=== PATIENT | female | born 1975 | race Caucasian/White ===

== ENCOUNTER 2019-08-19 11:17 | Outpatient (CLI) | payer OTHER, SELFPAY ==
--- NOTE | ~2019-08-19 | MMUS_ITS ---
EXAMINATION: MM diagnostic yong BI w rafael, US breast LT limited HISTORY: Palpable lump of the lower outer left breast, mastodynia TECHNIQUE: Craniocaudal, mediolateral, and mediolateral oblique 3-D tomosynthesis images of the don ts were performed and synthetic 2-D images were generated. CAD analysis was submitted and interpreted . High resolution limited left breast ultrasound was performed. COMPARISON: 11/23/2017, 02/11/2016, 05/20/2011 BREAST PARENCHYMAL COMPOSITION: The breasts are extremely dense, which lowers the sensitivity of mamm ography. FINDINGS: MAMMOGRAPHIC FINDINGS: There is no evidence of suspicious mass, calcification, or architectural distortion to suggest malnathaniel alejandre. There has been no suspicious interval change. No mammographic correlate is identified for the reported palpable abnormality of the left breast. ULTRASOUND: There is no evidence of focal abnormal solid or cystic lesion in the vicinity of the patient's left b reast pain or palpable lump. IMPRESSION: 1. No specific mammographic or sonographic correlate is identified for the patient's left breast lump for left breast pain Further evaluation at this time should be based on clinical assessment. Continu ed follow-up physical examination is recommended. 2. Recommend routine screening mammography in one year. BI-RADS Category 1: Negative Reviewed, dictated and finalized at location A. IMPRESSION: 1. No specific mammographic or sonographic correlate is identified for the meg ent's left breast lump for left breast pain Further evaluation at this time marne uld be based on clinical assessment. Continued follow-up physical examination i s recommended. 2. Recommend routine screening mammography in one year. BI-RADS Category 1: Negative IMPRESSION: 1. No specific mammographic or sonographic correlate is identified for the meg ent's left breast lump for left breast pain Further evaluation at this time maren uld be based on clinical assessment. Continued follow-up physical examination i s recommended. 2. Recommend routine screening mammography in one year. BI-RADS Category 1: Negative
== END 2019-08-19 11:18 | disposition home or self-care (01) ==
LOC: ANHIMG 11:23
PROVIDERS: PCP Family Medicine
DX: N64.4 Mastodynia (principal)
CPT/HCPCS: 76642; 77062; 77066; G0279

== ENCOUNTER 2021-10-05 15:55 | Outpatient (CLI) | payer OTHER, SELFPAY ==
--- NOTE | ~2021-10-05 | MM_ITS ---
EXAMINATION: MM screening yong BI w rafael HISTORY: Screening TECHNIQUE: Craniocaudal and mediolateral oblique 3-D tomosynthesis images were obtained and synthetic 2-D images were generated. CAD analysis was submitted and interpreted. COMPARISON: Comparison to multiple prior studies sequentially, with oldest reviewed study dated 03/10. BREAST PARENCHYMAL COMPOSITION: The breasts are extremely dense, which lowers the sensitivity of mamm ography FINDINGS: There is no evidence of suspicious mass, calcification, or architectural distortion to sugg est malignancy in either breast. There has been no suspicious interval change. IMPRESSION: 1. No mammographic evidence of malignancy. 2. Recommend routine screening mammography in one year. BI-RADS Category 1: Negative Reviewed, dictated and finalized at location A.
== END 2021-10-05 15:56 | disposition home or self-care (01) ==
LOC: ANHIMG 15:58
DX: Z12.31 Encounter for screening mammogram for malignant neoplasm of breast (principal)
CPT/HCPCS: 77063; 77067

== ENCOUNTER 2023-01-24 15:40 | Outpatient (CLI) | payer OTHER, SELFPAY ==
--- NOTE | ~2023-01-24 | MM_ITS ---
EXAMINATION: MM screening yong BI w rafael HISTORY: Screening TECHNIQUE: Craniocaudal and mediolateral oblique 3-D tomosynthesis images were obtained and synthetic 2-D images were generated. CAD analysis was submitted and interpreted. COMPARISON: Comparison to multiple prior studies sequentially, with oldest reviewed study dated 06/2015. BREAST PARENCHYMAL COMPOSITION: The breasts are extremely dense, which lowers the sensitivity of mamm ography FINDINGS: There is no evidence of suspicious mass, calcification, or architectural distortion to sugg est malignancy in either breast. There has been no suspicious interval change. IMPRESSION: 1. No mammographic evidence of malignancy. 2. Recommend routine screening mammography in one year. BI-RADS Category 1: Negative Reviewed, dictated and finalized at location A.
== END 2023-01-24 15:41 | disposition home or self-care (01) ==
DX: Z12.31 Encounter for screening mammogram for malignant neoplasm of breast (principal)
CPT/HCPCS: 77063; 77067

== ENCOUNTER 2023-08-09 13:24 | Outpatient (CLI) | payer OTHER, SELFPAY ==
--- NOTE | ~2023-08-09 | XR_ITS ---
EXAMINATION: XR lumbar spine min 4V DATE: 08/09/2023 13:45 INDICATION: Left-sided lumbar radiculopathy. TECHNIQUE: 5 views of lumbar spine were obtained. COMPARISON: None. FINDINGS: There is 4 degrees levocurvature of lumbar spine. Vertebral body heights are normal. There are endplate osteophytes at multiple levels. Intervertebral disc heights are normal. 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 IMPRESSION: 1. Mild lumbar spondylosis. Reviewed, dictated and finalized at location A. IMPRESSION: 1. Mild lumbar spondylosis.
== END 2023-08-09 13:25 ==
PROVIDERS: PCP Chiropractor; Visit Provider Chiropractor
DX: M47.26 Other spondylosis with radiculopathy, lumbar region (principal)
CPT/HCPCS: 72110

== ENCOUNTER 2024-05-20 14:35 | Outpatient (CLI) | payer OTHER, SELFPAY ==
--- NOTE | ~2024-05-20 | MM_ITS ---
EXAMINATION: MM screening yong BI w rafael HISTORY: Screening TECHNIQUE: Craniocaudal and mediolateral oblique 3-D tomosynthesis images were obtained and synthetic 2-D images were generated. CAD analysis was submitted and interpreted. COMPARISON: Comparison to multiple prior studies sequentially, with oldest reviewed study dated 06/2015. BREAST PARENCHYMAL COMPOSITION: Dense: The breasts are extremely dense, which lowers the sensitivity of mammography. FINDINGS: There is no evidence of suspicious mass, calcification, or architectural distortion to sugg est malignancy in either breast. There has been no suspicious interval change. IMPRESSION: 1. No mammographic evidence of malignancy. 2. Recommend routine screening mammography in one year. BI-RADS Category 1: Negative Reviewed, dictated and finalized at location [facility]
--- OUTSIDE RECORDS SUMMARY | 2024-05-20 14:54 | XMS_ITS | Referral Summary ---
Author Organization [facility] Address [address] [place] [id number] Care Team Providers Care Pharmacy Clinical Specialist Name Role Phone Deepa Lott MD Primary Care Provider Encounters Date Type Department Care Team Description 05/17/2024 2:30 PM FULL TIME STAFF INTERPRETER Office Visit [facility] at [address] [phone] Jennifer Simmons NP Sore throat (Primary Dx); Acute non-recurrent maxillary sinusitis 05/03/2024 2:11 PM FULL TIME STAFF INTERPRETER - 05/03/2024 11:59 PM FULL TIME STAFF INTERPRETER Hospital Encounter [address] [phone] Discharge Disposition: Discharge to home or self care 05/03/2024 2:00 PM FULL TIME STAFF INTERPRETER Lab [facility] at [address] [place] [phone] 05/03/2024 1:30 PM FULL TIME STAFF INTERPRETER Office Visit [facility] at [address] [place] [phone] Ana Bear NP Routine medical exam (Primary Dx); Migraine without aura and without status migrainosus, not intractable; Rosacea; Anxiety; History of basal cell carcinoma; Need for hepatitis C screening test; Need for hepatitis B screening test 04/04/[address] [facility] [address] [place] [address] [place] [phone] Gee Hopkins IV, MD 04/01/2024 11:57 AM FULL TIME STAFF INTERPRETER - 04/01/2024 11:59 PM FULL TIME STAFF INTERPRETER Hospital Encounter [facility] [address] [place] [phone] Discharge Disposition: Discharge to home or self care 04/01/2024 11:30 AM FULL TIME STAFF INTERPRETER Office Visit [facility] [address] [facility] [address] [place] [phone] Gee Hopkins IV, MD Menopausal symptoms (Primary Dx); Fibroids, subserous; Well woman exam with routine gynecological exam from Last 3 Months Allergies Active Allergy Reactions Criticality Noted Date Comments Morphine Hives Medium 08/15/2019 Medications buPROPion XL (WELLBUTRIN XL) 300 mg 24 hr tabletIndications: Anxiety Take 1 tablet (300 mg total) by mouth every morning 90 tablet 3 05/08/19 24 Active estradiol-norethin drone acet (COMBIPATCH) 0.05-0.14 mg/[address] 1 patch on the skin 2 (two) times a week 8 patch 11 04/04/20 24 025 Active ZOLMitriptan (ZOMIG) 5 mg nasal solutionIndication s:Migraine Administer 1 spray into one nostril as needed for migraine 6 mL 3 05/03/19 25 026 Active amoxicillin-clavul anate (AUGMENTIN) 875-125 mg per tabletIndications: Acute non-recurrent maxillary sinusitis Take 1 tablet by mouth 2 (two) times a day for 10 days 20 tablet 05/17/19 25 025 Active Soolantra 1 % cream Apply topically nightly 10/09/19 21 025 Discontin ued(Thera py completed ) Zomig 5 mg nasal solutionIndication s:Migraine Administer 1 spray into one nostril as needed for migraine 6 mL 2 08/28/19 24 025 Discontin ued(Thera py completed ) rizatriptan IMPREGNATOR ELECTROLYTIC [employer]ACITORS (MAXALT-IMPREGNATOR ELECTROLYTIC CAPACITORS) 5 mg disintegrating tabletIndications: Migraine Take 1 tablet (5 mg total) by mouth once as needed for migraine May repeat in 2 hours if unresolved. Do not exceed 30 mg in 24 hours. 9 tablet 2 09/07/19 24 025 Discontin ued(Thera py completed ) Active Problems Problem Noted Date Diagnosed Date Rosacea 04/26/2023 Assessment & Plan (05/02/2024 2:45 PM FULL TIME STAFF INTERPRETER): Topical treatment as needed Assessment & Plan (04/26/2023 7:56 AM FULL TIME STAFF INTERPRETER): Follows with dermatology. Stable with Soolantra 1% cream as needed, using infrequently. - Continue current regimen Routine medical exam 04/25/2023 Assessment & Plan (05/03/2024 1:31 PM FULL TIME STAFF INTERPRETER): Dentist: up to date Exercise: frequent Diet: healthy Mammogram: due - coming up Colon: 10/29 + 10 The patient should continue to focus on diet and exercise as a way to maintain and improve health. Immunizations: up to date Will review labs performed today and contact the patient with the results. Assessment & Plan (04/25/2023 3:34 PM FULL TIME STAFF INTERPRETER): General - HbA1c: 5.5% 06/2022 - Lipid panel: LDL 118 06/2022 - ASCVD score: 0.6% low risk - DEXA scan: Discuss at 65 Cancer - Colonoscopy: UTD 10/2021, repeat 10/2031 - Mammogram: UTD 01/2023, repeat 01/2024 - Pap: UTD 02/2022, repeat per [facility] Immunizations - Influenza: UTD 01/2023, repeat annually - Td/Tdap: UTD 06/2022, repeat 06/2032 - PCV20: Discuss at 65 - Shingles: Discuss at 50 - COVID: Recommended Migraine without aura and wi thout status migrainosus, not intractable 09/28/2020 Assessment & Plan (05/02/2024 2:45 PM FULL TIME STAFF INTERPRETER): Infrequent - zomig as needed Assessment & Plan (04/26/2023 7:55 AM FULL TIME STAFF INTERPRETER): Infrequent migraines, stable w/ use of Zomig nasal spray. - Continue current regimen Assessment & Plan (09/28/2020 1:16 PM CDT): Well controlled with zomig spray Uses 5-6 times per year History of basal cell carcinoma Assessment & Plan (05/02/2024 2:45 PM FULL TIME STAFF INTERPRETER): Follows with derm Assessment & Plan (04/26/2023 7:55 AM FULL TIME STAFF INTERPRETER): Follows with Dr. Otero annually. Several BCCs removed in the past. - Continue current regimen - Reviewed importance of sun protection Anxiety Assessment & Plan (05/02/2024 2:45 PM FULL TIME STAFF INTERPRETER): On wellbutrin XL Assessment & Plan (04/26/2023 7:55 AM FULL TIME STAFF INTERPRETER): Stable on Wellbutrin XL 300 mg daily. - Continue current regimen Assessment & Plan (09/28/2020 1:40 PM CDT): Well controlled on wellbutrin, continue Resolved Problems Problem Noted Date Diagnosed Date Resolved Date Insect bite of neck 01/05/2021 04/25/19 24 Assessment & Plan (01/05/2021 10:14 AM CDT): Red raised 2 mm insect bite that is itchy. No bullseye rash. Avoid scratching. Reassurance given that this is not Lyme's disease. Swelling of lymph node 01/05/202104/25 Assessment & Plan (01/05/2021 10:15 AM CDT): Explained that this is a congested lymph node that should respond to warm compresses for 10 minutes 2-3 times a day. CBC pending. Preventative health care 09/28/2020 Overview (09/28/2020): Currently established with [facility] in the [facility] system: Dr. Kellie EASTON on paps 07/2018 - no prior abnl paps 3 pgx 2 deliveries- no medical problems during No family hx of CRC- has not had screening yet Mamm- 08/2019 Assessment & Plan (09/28/2020 1:33 PM CDT): Plan to complete preventative visit with labs prior upcoming fall Currently established with [facility] [employer] [facility] [facility] in the [facility] system: Dr. Kellie EASTON on paps 07/2018 - no prior abnl paps 3 pgx 2 deliveries- no medical problems during No family hx of CRC- has not had screening yet Mamm- 08/2019 Immunizations Name Administration Dates Next Due Influenza, Quadrivalent, Graciela l Culture-based MDCK, Preservative Free, Antibiotic Free, Intramuscular 03/14/2023,02/18/2022 Influenza, Quadrivalent, Spl it, Preservative Free, Intramuscular 01/29/2021,01/20/2020,05/21/2018 Influenza, Split 04/30/2013 Influenza, Trivalent, Preser vative Free, Intramuscular 02/13/2024,04/05/2017,04/24/2016 Influenza, Unspecified 02/06/2023 Pfizer SARS-CoV-2 Monovalent Vaccination (12+ Yrs) PURPLE 01/28/2021,06/13/2020,05/16/2020 Tdap 07/01/2022 Social History Tobacco Use Types Packs/Day Years Used Date Smoking Tobacco: Never Smokeless Tobacco: Never Tobacco Cessation:Counseling Given: Not Answered Alcohol Use Standard Drinks/Week Comments Yes 5 (1 standard drink = 0.6 oz pur e alcohol) AUDIT-C Answer Date Recorded Q1: How often do you have a drink containing alc ohol? 2-4 times a month 10/15/2021 Q2: How many drinks containi ng alcohol do you have on a typical day when you are drinking? 3 or 4 10/15/2021 Q3: How often do you have si x or more drinks on one occasion? Never 10/15/2021 PHQ-2 Answer Date Recorded PHQ-2 Total Score (If total score is 3 or more points, staff should administer the PHQ-9) 0 05/03/2024 Exercise Vital Sign Answer Date Recorde d On average, how many days pe r week do you engage in moderate to strenuous exercise (like a brisk walk)? 7 days 09/28/2020 On average, how many minutes do you engage in exercise at this level? 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 Not on file Not on pavan e Last Filed Vital Signs Vital Sign Reading Time Taken Comments Blood Pressure 118/76 05/17/2024 2:23 PM FULL TIME STAFF INTERPRETER Pulse 72 05/17/2024 2:23 PM FULL TIME STAFF INTERPRETER Temperature 36.7 C (98.1 F) 05/17/2024 2:23 PM FULL TIME STAFF INTERPRETER Respiratory Rate 20 05/17/2024 2:23 PM FULL TIME STAFF INTERPRETER Oxygen Saturation 99% 05/17/2024 2:23 PM FULL TIME STAFF INTERPRETER Inhaled Oxygen Concentration - - Weight 59.9 kg (132 lb) 05/17/2024 2:23 PM FULL TIME STAFF INTERPRETER Height 172.7 cm (5' 8 ) 05/17/2024 2:23 PM FULL TIME STAFF INTERPRETER Body Mass Index 20.07 05/17/2024 2:23 PM FULL TIME STAFF INTERPRETER Plan of Treatment Not on file Procedures Procedure Name Priority Date/Time Associated Diagnosis Comments POCT RAPID STREP Routine 05/17/2024 2:41 PM FULL TIME STAFF INTERPRETER Sore throat EGFR Routine 05/03/2024 1:47 PM FULL TIME STAFF INTERPRETER Routine medical exam DIFFERENTIAL AUTO Routine 05/03/2024 1:4 7 PM FULL TIME STAFF INTERPRETER Routine medical exam CBC WITH AUTO DIFFERENTIAL Routine 05/03/2024 1:47 PM FULL TIME STAFF INTERPRETER Routine medical exam COMPREHENSIVE METABOLIC PANEL Routine 05/03/2024 1:47 PM FULL TIME STAFF INTERPRETER Routine medical exam LIPID PANEL Routine 05/03/2024 1:47 PM FULL TIME STAFF INTERPRETER Routine medical exam THYROID FUNCTION CASCADE Routine 05/03/2024 1:47 PM FULL TIME STAFF INTERPRETER Routine medical exam Anxiety HEPATITIS C ANTIBODY Routine 05/03/2024 1:47 PM FULL TIME STAFF INTERPRETER Need for hepatitis C screening test HEPATITIS B SURFACE ANTIGEN Routine 05/03/2024 1:47 PM FULL TIME STAFF INTERPRETER Routine medical exam Need for hepatitis B screening test HEPATITIS B CORE ANTIBODY, TOTAL Routine 05/03/2024 1:47 PM FULL TIME STAFF INTERPRETER Routine medical exam Need for hepatitis B screening test HEPATITIS B SURFACE ANTIBODY (IMMUNE STATUS) Routine 05/03/2024 1:47 PM FULL TIME STAFF INTERPRETER Routine medical exam Need for hepatitis B screening test URINALYSIS AND REFLEX TO MICROSCOPIC AND CULTURE Routine 05/03/2024 1:47 PM FULL TIME STAFF INTERPRETER Routine medical exam FOLLICLE STIMULATING HORMONE Routine 04/01/2024 3:23 PM FULL TIME STAFF INTERPRETER Menopausal symptoms HM MAMMOGRAPHY Routine 01/24/2023 PAP AND HIGH RISK HPV, REFLEX TO GENOTYPING Routine 02/24/2022 4:43 PM FULL TIME STAFF INTERPRETER Well woman exam with routine gynecological exam Screening for HPV (human papillomavirus) Screening for malignant neoplasm of cervix COLONOSCOPY 10/15/2021 8:06 AM CDT from Last 3 Months or Most Recently Relevant to Health Maintenance Results * POCT rapid strep A (05/17/2024 2:41 PM FULL TIME STAFF INTERPRETER) Pathologist [facility] Rapid Strep A, POC Negative Negative Swab 05/17/2024 2:41 PM FULL TIME STAFF INTERPRETER Jennifer Simmons NP POINT OF CARE TEST ORDERAB LES Final Result * eGFR (05/03/2024 1:47 PM FULL TIME STAFF INTERPRETER) Pathologist [facility] eGFR >90 >=60 mL/min/1. 73 m2 Comment: Interpretive Data Reference Interval Normal >/= 90 mL/min/1.73m2 Mildly decreased* 60 - 89 mL/min/1.73m2 Mildly to moderately decreased 45 - 59 mL/min/1.73m2 Moderately to severely decreased 30 - 44 mL/min/1.73m2 Severely decreased 15 - 29 mL/min/1.73m2 Kidney Failure < 15 mL/min/1.73m2 *Relative to young adult level Estimated glomerular filtration rate is determined by the 2020 CKD-EPI equation recommended by the National Kidney Foundation (A Unifying Approach to GFR Estimation: Recommendations of the NKF-ASK Task Force on Reassessing the Inclusion of Race in Diagnosing Kidney Disease, JASN 202). The CKD-EPI equation should not be used for patients with unstable renal function and has not been validated in children and those over 70. Current interpretive data was last reviewed 2021. Blood 05/03/2024 1:47 PM FULL TIME STAFF INTERPRETER 05/03/2024 7:09 PM FULL TIME STAFF INTERPRETER us Ana Bear DIE MAKER APPRENTICE LAB BLOOD ORDERABLES Final Res ult [facility] [address] [place] [address] * Differential, auto (05/03/2024 1:47 PM FULL TIME STAFF INTERPRETER) Neutrophil abs 1.8 1.5 - 6.5 K/cumm Imm gran abs 0.0 0.0 - 0.1 K/cumm [facility] Lymphocyte abs 1.6 0.8 - 3.3 K/cumm [facility] Monocyte abs 0.3 0.2 - 0.8 K/cumm [facility] Eosinophil abs 0.0 0.0 - 0.5 K/cumm [facility] Basophil abs 0.0 0.0 - 0.1 K/cumm [facility] Neutrophil pct 47.3 % [facility] Comment: Interpretive Data Percent cell count reference ranges are not reported, since discordance with absolute values may lead to misinterpretation of CBC data. Current Interpretive Data was last revised on 2017. Imm gran pct 0.3 % [facility] Comment: Interpretive Data Percent cell count reference ranges are not reported, since discordance with absolute values may lead to misinterpretation of CBC data. Current Interpretive Data was last revised on 2017. Lymphocyte pct 42.6 % [facility] Comment: Interpretive Data Percent cell count reference ranges are not reported, since discordance with absolute values may lead to misinterpretation of CBC data. Current Interpretive Data was last revised on 2017. Monocyte pct 8.3 % [facility] Comment: Interpretive Data Percent cell count reference ranges are not reported, since discordance with absolute values may lead to misinterpretation of CBC data. Current Interpretive Data was last revised on 2017. Eosinophil pct 1.0 % [facility] Comment: Interpretive Data Percent cell count reference ranges are not reported, since discordance with absolute values may lead to misinterpretation of CBC data. Current Interpretive Data was last revised on 2017. Basophil pct 0.5 % [facility] Comment: Interpretive Data Percent cell count reference ranges are not reported, since discordance with absolute values may lead to misinterpretation of CBC data. Current Interpretive Data was last revised on 2017. Blood 05/03/2024 1:47 PM FULL TIME STAFF INTERPRETER 05/03/2024 6:42 PM FULL TIME STAFF INTERPRETER Ana Bear DIE MAKER APPRENTICE LAB BLOOD ORDERABLES Final Res ult Performing Organization Address [facility]/ZIP Co de Phone Number [facility] [address] [place] [address] * Thyroid Function Dickens (05/03/2024 1:47 PM FULL TIME STAFF INTERPRETER) TSH 1.95 0.30 - 4.20 mcIUnit/mL Blood 05/03/2024 1:47 PM FULL TIME STAFF INTERPRETER 05/03/2024 7:09 PM FULL TIME STAFF INTERPRETER Ana Bear DIE MAKER APPRENTICE LAB BLOOD ORDERABLES Final Res ult Performing Organization Address City/[facility]/ZIP Co de Phone Number [facility] [address] [place] [address] * (ABNORMAL) Urinalysis reflex to microscopic and culture Urine, clean voided (05/03/2024 1:47 PM FULL TIME STAFF INTERPRETER) Color, ur Yellow Yellow Clarity, ur Clear Clear [facility] Specific gravity, ur 1.012 1.003 - 1.030 [facility] pH, urine 6.0 [facility] Comment: Interpretive Data U rine pH is affected by diet, medications, systemic acid-base disturbances, and renal tubular function. pH may affect urinary stone formation. For example, urine pH below 6.0 may help reduce the tendency for calcium phosphate stones and pH greater than 6.0 may reduce the tendency for uric acid stone formation. Source: [facility] Current Interpretive Data was last revised on 2017 Protein, ur ql Negative Negative [facility] Glucose, ur ql Negative Negative [facility] Ketones, ur 1+(A) Negative [facility] Bilirubin, ur Negative Negative [facility] Blood, ur Negative Negative [facility] Urobilinogen, ur <2.0 <2.0 mg/dL [facility] Nitrite, ur Negative Negative [facility] Leukocyte esterase, ur Negative Negative [facility] UA reflex comment Reflex conditions for microscopic UA and culture not met. [facility] Urine, clean voided 05/03/2024 1:47 PM FULL TIME STAFF INTERPRETER 05/03/2024 1:48 PM FULL TIME STAFF INTERPRETER us Ana Bear NP LAB MICROBIOLOGY - GENERAL ORD ERABLES Final Result [facility] [address] Department [place] [address] * (ABNORMAL) CBC with auto differential (05/03/2024 1:47 PM FULL TIME STAFF INTERPRETER) Pathologist [facility] WBC 3.9 3.8 - 9.9 K/cumm Hgb 13.7 11.9 - 15.5 g/dL [facility] Hct 42.4 35.6 - 45.5 % [facility] Plt 246 150 - 400 K/cumm [facility] MPV 9.2 9.1 - 12.3 fL [facility] RBC 4.34 3.90 - 5.20 M/cumm [facility] MCV 97.7(H) 81.3 - 96.4 fL [facility] MCH 31.6 27.1 - 33.3 pg [facility] MCHC 32.3 32.3 - 35.7 g/dL [facility] RDW CV 12.2 11.1 - 14.9 % [facility] RDW SD 44.1 35.7 - 48.1 fL [facility] NRBC abs 0.00 0.00 - 0.01 K/cumm [facility] Blood 05/03/2024 1:47 PM FULL TIME STAFF INTERPRETER 05/03/2024 6:42 PM FULL TIME STAFF INTERPRETER Ana Bear NP LAB BLOOD ORDERABLES Final Res ult Performing Organization Address [facility] Co de Phone Number [facility] [address] [place] [address] * Hepatitis C antibody Blood (05/03/2024 1:47 PM FULL TIME STAFF INTERPRETER) Hep C Ab Nonreactive Nonreactive Comment: Interpretive Data Nonreactive: Antibodies to HCV not detected. Does NOT exclude the possibility of recent exposure to HCV. Equivocal: Equivocal for HCV antibodies. Supplemental molecular testing will be automatically performed to determine infection status in accordance with current CDC screening recommendations. Reactive: Positive for HCV antibodies. This may represent current or past HCV infection. Supplemental molecular testing will be automatically performed to determine current infection status in accordance with current CDC screening recommendations. Interpretive data was last revised on 2019. Blood 05/03/2024 1:47 PM FULL TIME STAFF INTERPRETER 05/03/2024 7:09 PM FULL TIME STAFF INTERPRETER Ana Bear NP LAB MICROBIOLOGY - GENERAL ORD ERABLES Final Result Performing Organization Address City/[facility]/ZIP Co de Phone Number [facility] [address] [place] [address] * Hepatitis B core antibody, total Blood (05/03/2024 1:47 PM FULL TIME STAFF INTERPRETER) Hep B core IgG/IgM Nonreactive Nonreactive Comment:Testing performed by : [facility], [address] [place]., [address] Blood 05/03/2024 1:47 PM FULL TIME STAFF INTERPRETER 05/03/2024 9:47 PM FULL TIME STAFF INTERPRETER Ana Bear NP LAB MICROBIOLOGY - GENERAL ORD ERABLES Final Result Performing Organization Address City/[facility] Co de Phone Number [facility] [address] [place] [address] * Hepatitis B surface antibody (immune status) Blood (05/03/2024 1:47 PM FULL TIME STAFF INTERPRETER) Pathologist [facility] HBsAb (immune status) Nonreactive Comment: This result is consistent with a lack of immunity to Hepatitis B Virus when used in the setting of routine screening. Current interpretative data was last revised on 21 Testing performed by: [facility], [address] [place]., [address] Blood 05/03/2024 1:47 PM FULL TIME STAFF INTERPRETER 05/03/2024 9:47 PM FULL TIME STAFF INTERPRETER Ana Bear NP LAB MICROBIOLOGY - GENERAL ORD ERABLES Final Result Performing Organization Address [facility] Co de Phone Number [facility] [address] [place] [address] * Hepatitis B Surface Antigen Blood (05/03/2024 1:47 PM FULL TIME STAFF INTERPRETER) Pathologist [facility] HepBsAg Nonreactive Nonreactive Blood 05/03/2024 1:47 PM FULL TIME STAFF INTERPRETER 05/03/2024 7:09 PM FULL TIME STAFF INTERPRETER Ana Bear NP LAB MICROBIOLOGY - GENERAL ORD ERABLES Final Result Performing Organization Address City/[facility]/ZIP Co de Phone Number [facility] [address] [place] [address] * (ABNORMAL) Lipid panel (05/03/2024 1:47 PM FULL TIME STAFF INTERPRETER) Cholesterol 204(H) 30 - 199 mg/dL Comment: Interpretive Data Ages < or = 19 years Acceptable: <170 mg/dL Borderline high: 170-199 mg/dL High: >or= 200 mg/dL Ages > or = 20 years Desirable: <200 mg/dL Borderline high: 200-239 mg/dL High: >or= 240 mg/dL Literature References: 1. Expert Panel on Integrated Guidelines for Cardiovascular Health and Risk Reduction in Children and Adolescents. Pediatrics 2011;128:S213 2. NCEP Expert Panel. Circulation 2004;110:227 Current Interpretive Data was last revised on 2017. Triglycerides 59 <=149 mg/dL [facility] Comment: Interpretive Data Ages < or = 9 years Acceptable: <75 mg/dL Borderline high: 75-99 mg/dL High: >or= 100 mg/dL Ages 10 to 20 years Acceptable: <90 mg/dL Borderline high: 90-129 mg/dL High: >or= 130 mg/dL Ages > or = 20 years Desirable: <150 mg/dL Borderline high: 150-199 mg/dL High: 200-499 mg/dL Very high: >or= 499 mg/dL Literature References: 1. Expert Panel on Integrated Guidelines for Cardiovascular Health and Risk Reduction in Children and Adolescents. Pediatrics 2011;128:S213 2. NCEP Expert Panel. Circulation 2004;110:227 Current Interpretive Data was last revised on 2017. HDL 70 >=40 mg/dL [facility] Comment: Interpretive Data Ages < or = 19 years Acceptable: >45 mg/dL Borderline low: 40-45 mg/dL Low: <40 mg/dL Ages > or = 20 years Desirable: >or= 60 mg/dL Low: <40 mg/dL Literature References: 1. Expert Panel on Integrated Guidelines for Cardiovascular Health and Risk Reduction in Children and Adolescents. Pediatrics 2011;128:S213 2. NCEP Expert Panel. Circulation 2004;110:227 Current Interpretive Data was last revised on 2017. LDL, calculated 123 <=129 mg/dL [facility] Comment: Interpretive Data Ages < or = 19 years Acceptable: <110 mg/dL Borderline high: 110-129 mg/dL High: >or= 130 mg/dL Ages > or = 20 years Optimal: <100 mg/dL Near optimal: 100-129 mg/dL Borderline high: 130-159 mg/dL High: >160 mg/dL Calculated using the Kevin LDL-C estimating equation. This equation was implemented on 2023. Prior to this date LDL-C was estimated using the Friedewald equation. Literature References: 1. Expert Panel on Integrated Guidelines for Cardiovascular Health and Risk Reduction in Children and Adolescents. Pediatrics 2011;128:S213 2. NCEP Expert Panel. Circulation 2004;110:227 3. Kevin Palomino et al. MIKE Cardiol. 2020 August 08;5(5):540-548. doi: 10.1001/jamacardio.2020.0013 Current Interpretive Data was last revised on 2023. Non-HDL Cholesterol 134 mg/dL [facility] Comment: Interpretive Data Ages < or = 19 years Acceptable: <120 mg/dL Borderline high: 120-144 mg/dL High: >145 mg/dL Ages > or = 20 years When triglycerides are >200 mg/dL, Non-HDL cholesterol is a secondary target of therapy with treatment goals that are 30 mg/dL greater than the LDL cholesterol target. Literature References: 1. Expert Panel on Integrated Guidelines for Cardiovascular Health and Risk Reduction in Children and Adolescents. Pediatrics 2011;128:S213 2. NCEP Expert Panel. Circulation 2004;110:227 Current Interpretive Data was last revised on 2017. Chol/HDL ratio 3 [facility] Blood 05/03/2024 1:47 PM FULL TIME STAFF INTERPRETER 05/03/2024 7:09 PM FULL TIME STAFF INTERPRETER us Ana Bear DIE MAKER APPRENTICE LAB BLOOD ORDERABLES Final Res ult [facility] [address] Department [place] [address] * Comprehensive metabolic panel (05/03/2024 1:47 PM FULL TIME STAFF INTERPRETER) Sodium 142 135 - 145 mmol/L Potassium, pl 4.0 3.3 - 4.9 mmol/L [facility] Chloride 104 97 - 110 mmol/L [facility] CO2 26 22 - 32 mmol/L [facility] Anion gap 12 2 - 15 mmol/L [facility] BUN 13 6 - 25 mg/dL [facility] Creatinine 0.65 0.60 - 1.10 mg/dL [facility] Glucose 78 70 - 199 mg/dL [facility] Comment: Interpretive Data Fasting glucose >/= 126 mg/dl is diagnostic for diabetes. Fasting is defined as no caloric intake for at least 8 hours. Fasting glucose between 100 mg/dl to 125 mg/dl is diagnostic of prediabetes. In a patient with classic symptoms of hyperglycemia or hyperglycemic crisis, a random glucose >/= 200 mg/dl is diagnostic for diabetes. In the absence of unequivocal hyperglycemia, results should be confirmed by repeat testing. The classification and Diagnosis of Diabetes Diabetes Care 202; 46: S19-S40. Current interpretive data was last revised 2022. Calcium 9.4 8.5 - 10.3 mg/dL [facility] Bilirubin, total 0.4 0.1 - 1.2 mg/dL [facility] Protein, pl 7.1 6.5 - 8.5 g/dL [facility] Albumin 4.6 3.5 - 5.0 g/dL [facility] Alk phos 66 40 - 130 Units/L [facility] ALT 17 7 - 45 Units/L [facility] AST 23 10 - 45 Units/L [facility] Blood 05/03/2024 1:47 PM FULL TIME STAFF INTERPRETER 05/03/2024 7:09 PM FULL TIME STAFF INTERPRETER Ana Bear DIE MAKER APPRENTICE LAB BLOOD ORDERABLES Final Res ult [facility] [address] Department [place] [address] * Follicle stimulating hormone (04/01/2024 3:23 PM FULL TIME STAFF INTERPRETER) FSH 115.00 mIUnits/mL Comment: Interpretive Data Males: 1.5 - 12.4 mIUnits/mL Females: Follicular Phase: 3.5 - 12.5 mIUnits/mL Ovulatory Phase: 4.7 - 21.5 mIUnits/mL Luteal Phase: 1.7 - 7.7 mIUnits/mL Post-menopausal: 25.8 - 134 mIUnits/mL Current Interpretive Data was last revised on 2016. Blood 04/01/2024 3:23 PM FULL TIME STAFF INTERPRETER 04/01/2024 3:23 PM FULL TIME STAFF INTERPRETER Gee Hopkins IV, MD LAB BLOOD ORDERABLES F inal Result [facility] [address] [facility] Department [place] [address] * HM MAMMOGRAPHY (01/24/2023) Mammography Normal Historical Provider HEALTH MAINTENANCE Final Result * Pap and High Risk HPV, reflex to Genotyping (02/24/2022 4:43 PM FULL TIME STAFF INTERPRETER) Thin prep (Pap test) 02/24/2022 4:43 PM FULL TIME STAFF INTERPRETER 02/28/2022 2:31 PM FULL TIME STAFF INTERPRETER Narrative [facility] - 03/04/2022 9:01 AM FULL TIME STAFF INTERPRETER EPIC results best viewed via link to PDF [id number] [place], [place] [address] Tele: Mariela Hair MD - Billet Grinder CYTOLOGY REPORT Note to Patients: This report may contain a detailed description of human tissue sent by a health care provider to the laboratory for pathologic evaluation. The content of this report is essential for diagnosis and may provide important critical findings. This information may be unfamiliar to patients to review without a medical professional present. It is advised that the patient review this report in the presence of a health care provider who can answer questions and explain the details. Patient Name: TAIWO SHORE Address: [address] [place] [address] Gender: F : 1975 (Age: 46) Service: Location: [facility] #: [id number] Patient Type: MBC SPECIMEN Taken: 02/24/2022 Reported: 03/04/2022 Physician(s): Juan José Hopkins M.D. FINAL DIAGNOSIS: Specimen Type: - ThinPrep Pap and HPV w/ reflex Genotyping Statement of Specimen Adequacy: Source: Cervical/Endocervical - Satisfactory for interpretation - Endocervical /Transformation Zone component present - Case screened using computer assisted imaging technology General Categorization: - Negative for intraepithelial lesion or malignancy xbb/03/04/2022 09:01LISSY Lewis (ASCP) Report Reviewed and Electronically Signed By LISSY Lewis (ASCP)Clerical Data Follow A; G0145 DIAGNOSIS COMMENT: Ancillary Testing: HPV High Risk Group (16, 18, 31, 33, 35, 39, 45, 51, 52, 56, 58, 59, 66 and 68) - Not Detected Reference Range: Not Detected This test was performed using the MARY ANN 4800 CLINICAL DIAGNOSIS AND HISTORY Last Menstrual Period: UNK Menstrual History: Regular Cycles REPORT IMAGES AND/OR SCANNED DOCUMENTS ONLY VIEWABLE IN PDF FORMAT The Pap test is a screening test used to aid in the detection of cervical cancer and its precursors. It should not be the sole means by which malignant and premalignant lesions are diagnosed. Both false negative and false positive results may occur. It also has poor sensitivity for the detection of endometrial lesions and should not be used to evaluate suspected endometrial abnormalities. For these reasons it is most important to obtain Pap tests at regular intervals, as recommended by your physician or nurse practitioner. us Gee Hopkins IV, MD LAB CYTOLOGY ORDERABLE S Final Result [facility] Laboratory Receiving [address] [place] [address] * COLONOSCOPY (10/15/2021 8:06 AM CDT) Anatomical Region Laterality Modality Other Narrative Procedure Note Anand Walker MD - 10/15/2021 8:06 AM CDT ENDOSCOPY LAB Patient Name: Taiwo Shore Procedure Date: 10/15/2021 8:06 AM Admit Type: Outpatient Room: [facility] Date of : 1975 Instrument Name: [id number] Gender: Female Note Status: Finalized Procedure: Colonoscopy Indications: Screening for colorectal malignant neoplasm, Thisis the patient's first colonoscopy Providers: Anand Walker M.D. Referring MD: Marquez Koehler M.D. Medicines: Propofol per Anesthesia Complications: No immediate complications. Estimated Blood Loss: Estimated blood loss: none. Procedure: Pre-Anesthesia Assessment: - Pre-procedure physical examination revealed no contraindications to sedation. - The risks and benefits of the procedure and the sedation options and risks were discussed with the patient. All questions were answered and informed consent was obtained. The benefits, risks and alternatives of theprocedure and sedation were discussed and informed consentwas obtained. All questions were answered. Please referto the signed informed consent document in the medical record. The scope was passed under direct vision.The Colonoscope was introduced through the anus and advanced to the the cecum, identified byappendiceal orifice and ileocecal valve. The colonoscopy was performed without difficulty. The patient tolerated the procedure well. The quality of the bowel preparation was good. The quality of the bowel preparation was evaluated using the BBPS (BostonBowel Preparation Scale) with scores of: Right Colon = 3 (entire mucosa seen well with no residual staining, small fragments of stool or opaque liquid),Transverse Colon = 3 (entire mucosa seen well with no residual staining, small fragments of stool or opaqueliquid) and Left Colon = 3 (entire mucosa seen well with no residual staining, small fragments of stool oropaque liquid). The total BBPS score equals 9. The bowel preparation used was polyethylene glycol (PEG) via split dose instruction. Bowel prep was administered using a split dose. Bowel prep was administeredusing a split dose. Findings: Internal hemorrhoids were found during retroflexion. The hemorrhoids were small. The exam was otherwise without abnormality. Impression: - Small internal hemorrhoids. - The examination was otherwise normal. - No specimens collected. Recommendation: - Repeat colonoscopy in 10 years for screening purposes. - If you become aware of a family history of colon cancer/polyps in a first-degree relative, repeat screening colonoscopy at 5 year intervals. - If GI problems arise in the interim, call ouroffice. Electronically signed by Anand Walker MD Anand Walker M.D. 10/15/2021 8:51:44 AM Number of Addenda: 0 Note Initiated On: 10/15/2021 8:06 AM Scope In: Scope Out: Anand Walker MD ENDOSCOPY PROCEDURES Final Result from Last 3 Months or Most Recently Relevant to Health Maintenance Insurance [facility] [employer] [facility] H[facility]/PPO Address: [address] [place] [address] [place] [address] [facility] [employer] [facility] [facility] H[employer]/PPO Address: [address] [place] [address] [place] [address] [facility] [employer] [facility] [facility] H[employer]/PPO Address: [address] [place] [address] Advance Directives For more information, please contact: [phone] * Full Code (Latest Code Status on File) Date Activated Date Inactivated Comments 10/15/2021 7:37 AM 10/15/2021 1:27 PM Care Teams Pharmacy Clinical Specialist Relationship Specialty Start Date End Date Deepa Lott MD [address] [address] PCP - General Internal Medicine 04/25/23
--- OUTSIDE RECORDS SUMMARY | 2024-05-20 14:54 | XMS_ITS | Patient Health Summary ---
Author Organization [facility] Address [address] [place] [address] Care Team Providers Care Rim Buster Name Role Phone Marquez Koehler MD Primary Care Provider [phone] Note from [facility],non-owned Affiliates and Associated Physician Practices is amultiple site organization consisting of ambulatory clinics and hospital sitesin [place], [place], [place] and [place]. This disclosure is being madepursuant to the Care Everywhere program and may not contain all information available regarding this patient. Last updated 17.[facility] Allergies * Morphine(Urticaria) -Medium Criticality Medications * Be aware that medications may not be up to date on this document. Alwaysverify current medications with the patient. 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
--- OUTSIDE RECORDS SUMMARY | 2024-05-20 14:54 | XMS_ITS | Clinical Summary ---
Author Organization [facility] Address [address] [place] [address] Phone Care Team Providers Care Statement Services Representative Name Role Phone Unavailable Primary Care Provider Unavailabl e Allergies Active Allergy Reactions Criticality Noted Date Comments Morphine Hives High 06/28/2021 Medications buPROPion HCL (WELLBUTRIN XL) 300 mg Extended Release 24 hour tablet Take 300 mg by mouth daily in the morning. Active Social History Tobacco Use Types Packs/Day Years Used Date Smoking Tobacco: Never Alcohol Use Standard Drinks/Week Comments Yes 0 (1 standard drink = 0.6 oz pur e alcohol) 10 Comments Unknown Sex and Gender Information Value Date Recorded Sex Assigned at Not on file Legal Sex Female 10:24 AM TIER AND DETONATOR Gender Identity Not on file Sexual Orientation Not on file Last Filed Vital Signs Vital Sign Reading Time Taken Comments Blood Pressure 93/57 08/02/2021 3:23 PM CDT Pulse 67 08/02/2021 3:23 PM CDT Temperature 36.3 C (97.4 F) 08/02/2021 3:23 PM CDT Respiratory Rate 17 08/02/2021 1:45 PM CDT Oxygen Saturation 100% 08/02/2021 3:23 PM CDT Inhaled Oxygen Concentration - - Weight 60.2 kg (132 lb 12.8 oz) 022 11:04 AM CDT Height 175.3 cm (5' 9 ) 08/02/2021 11:0 4 AM CDT Body Mass Index 19.61 08/02/2021 11:04 AM CDT Plan of Treatment Health Maintenance Due Date Last Done Comments DTAP/TDAP/TD VACCINES (1 - Tdap) 1994 HEPATITIS B VACCINES (1 of 3 - 19+ 3-dose series) 1994 CERVICAL CANCER SCREENING 2005 BREAST CANCER SCREENING 2015 COLORECTAL SCREENING 2020 Colorectal Cancer Screening 2020 FIT-DNA Q 3 years 2020 FIT/FOBT Q 1 year 2020 Flex Sig/CT Colonography Q 5 years 2020 INFLUENZA VACCINE (#1) 2023 , 01/20/2020, 05/21/2018, Additional history exists Insurance [place] [id number] [facility] [id number] Advance Directives For more information, please contact: [phone] * Full Code (Latest Code Status on File) Date Activated Date Inactivated Comments 08/02/2021 1:51 PM 08/02/2021 5:45 PM * Full Code Date Activated Date Inactivated Comments 08/02/2021 12:17 PM 08/02/2021 1:51 PM
--- OUTSIDE RECORDS SUMMARY | 2024-05-20 14:54 | XMS_ITS | Clinical Summary ---
Author Organization [facility] Address [address] [place] [address] Care Team Providers Care Time Checker Name Role Phone Marquez Koehler MD Primary Care Provider [phone]- [phone] Source Comments [facility],non-owned Affiliates and Associated Physician Practices is amultiple site organization consisting of ambulatory clinics and hospital sitesin [place], [place], [place] and [place]. This disclosure is being madepursuant to the Care Everywhere program and may not contain all information available regarding this patient. Last updated 17.[facility] Allergies Active Allergy Reactions Criticality Noted Date Comments Morphine Urticaria Medium 08/15/2019 Medications * Be aware that medications may not be up to date on this document. Alwaysverify current medications with the patient. 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 Family History Relation Name Status Comments Father Alive Maternal Grandfather Maternal Grandmother Mother Alive Paternal Grandfather Paternal Grandmother Social History Tobacco Use Types Packs/Day Years Used Date Smoking Tobacco: Never Smokeless Tobacco: Never Alcohol Use Standard Drinks/Week Comments Yes 0 (1 standard drink = 0.6 oz pur e alcohol) Sex and Gender Information Value Date Recorded Sex Assigned at Not on file Gender Identity Not on file Sexual Orientation Not on file Plan of Treatment Health Maintenance Due Date Last Done Comments COLOGUARD (AGES 45-75) - COLON CA SCREENING [address] COLONOGRAPHY - COLON CA SCREENING 1975 FIT - COLON CA SCREENING 1975 FLEX SIG - COLON CA SCREENING 1975 LIPID TESTING 1975 MAMMOGRAM 1975 PAP SMEAR 1975 HIV SCREENING 1990 HEPATITIS C SCREENING 04/11/1993 DTAP/TDAP/TD VACCINES (1 - Tdap) 1994 HEPATITIS B VACCINE (1 of 3 - 19+ 3-dose series) 1994 COVID-19 VACCINE ( - 2023- season) 2023 01/28/2021, 06/13/2020, 05/16/2020 INFLUENZA VACCINE (#1) 2023 , 01/20/2020, 05/21/2018, Additional history exists DEPRESSION SCREENING 04/10/2024 ZOSTER VACCINE (1 of 2) 2025 COLONOSCOPY - COLON CA SCREENING 10/16/2031 10/15/2021 Colorectal Cancer Screening 10/16/2031 HIB VACCINE Aged Out No longer eligi ble based on patient's age to complete this topic HPV VACCINE Aged Out No longer eligi ble based on patient's age to complete this topic MENINGOCOCCAL (Group B) VACCINE Aged Out No longer eligible based on patient's age to complete this topic MENINGOCOCCAL VACCINE Aged Out No rosalba chris eligible based on patient's age to complete this topic PNEUMOCOCCAL VACCINE Aged Out No long er eligible based on patient's age to complete this topic Care Teams Time Checker Relationship Specialty Start Date End Date Marquez Koehler MD [address] [facility] [address] [place] [address] PCP - General 06/01/21
--- OUTSIDE RECORDS SUMMARY | 2024-05-20 14:54 | XMS_ITS | Clinical Summary ---
Author Organization [facility] Address [address] [place] [phone] Care Team Providers Care Educational Program Assistant Name Role Phone Deepa Lott MD Primary Care Provider Allergies Active Allergy Reactions Criticality Noted Date [...] 025 Discontin ued(Thera py completed ) rizatriptan QUALITY CONTROL TESTER (MAXALT-QUALITY CONTROL TESTER) 5 mg disintegrating tabletIndications: Migraine Take 1 tablet (5 mg total) by mouth once as needed for migraine May repeat in 2 hours if unresolved. Do not exceed 30 mg in 24 hours. 9 tablet 2 09/07/19 24 025 Discontin ued(Thera py completed ) Active Problems Problem Noted Date Diagnosed Date Rosacea 04/26/2023 Assessment & Plan (05/02/2024 2:45 PM PEST LOCATOR): Topical treatment as needed Assessment & Plan (04/26/2023 7:56 AM PEST LOCATOR): Follows with dermatology. Stable with Soolantra 1% cream as needed, using infrequently. - Continue current regimen Routine medical exam 04/25/2023 Assessment & Plan (05/03/2024 1:31 PM PEST LOCATOR): Dentist: up to date Exercise: frequent Diet: healthy Mammogram: due - coming up Colon: 10/29 + 10 The patient should continue to focus on diet and exercise as a way to maintain and improve health. Immunizations: up to date Will review labs performed today and contact the patient with the results. Assessment & Plan (04/25/2023 3:34 PM PEST LOCATOR): General - HbA1c: 5.5% 06/2022 - Lipid panel: LDL 118 06/2022 - ASCVD score: 0.6% low risk - DEXA scan: Discuss at 65 Cancer - Colonoscopy: UTD 10/2021, repeat 10/2031 - Mammogram: UTD 01/2023, repeat 01/2024 - Pap: UTD 02/2022, repeat per Buckle Attaching Machine Operator Immunizations - Influenza: UTD 01/2023, repeat annually - Td/Tdap: UTD 06/2022, repeat 06/2032 - PCV20: Discuss at 65 - Shingles: Discuss at 50 - COVID: Recommended Migraine without aura and wi thout status migrainosus, not intractable 09/28/2020 Assessment & Plan (05/02/2024 2:45 PM PEST LOCATOR): Infrequent - zomig as needed Assessment & Plan (04/26/2023 7:55 AM PEST LOCATOR): Infrequent migraines, stable w/ use of Zomig nasal spray. - Continue current regimen Assessment & Plan (09/28/2020 1:16 PM CDT): Well controlled with zomig spray Uses 5-6 times per year History of basal cell carcinoma Assessment & Plan (05/02/2024 2:45 PM PEST LOCATOR): Follows with derm Assessment & Plan (04/26/2023 7:55 AM PEST LOCATOR): Follows with Dr. Otero annually. Several BCCs removed in the past. - Continue current regimen - Reviewed importance of sun protection Anxiety Assessment & Plan (05/02/2024 2:45 PM PEST LOCATOR): On wellbutrin XL Assessment & Plan (04/26/2023 7:55 AM PEST LOCATOR): Stable on Wellbutrin XL 300 mg daily. [...] care 09/28/2020 Overview (09/28/2020): Currently established with [facility] in the [facility] system: Dr. Kellie EASTON on paps 07/2018 - no prior abnl paps 3 pgx 2 deliveries- no medical problems during No family hx of CRC- has not had screening yet Mamm08/2019 Assessment & Plan (09/28/2020 1:33 PM CDT): Plan to complete preventative visit with labs prior upcoming fall Currently established with [facility] in the [facility] system: Dr. Kellie EASTON on paps 07/2018 - no prior abnl paps 3 pgx 2 deliveries- no medical problems during No family hx of CRC- has not had screening yet 08/2019 Encounters Date Type Department Care Team Description 05/17/2024 2:30 PM PEST LOCATOR Office Visit [facility] Care at [address] [phone] Jennifer Simmons NP Sore throat (Primary Dx); Acute non-recurrent maxillary sinusitis 05/03/2024 2:11 PM PEST LOCATOR - 05/03/2024 11:59 PM PEST LOCATOR Hospital Encounter [id number] [place] [address] Discharge Disposition: Discharge to home or self care 05/03/2024 2:00 PM PEST LOCATOR Lab [facility] Primary Care at [address] [place] [phone] 05/03/2024 1:30 PM PEST LOCATOR Office Visit [facility] Primary Care at [address] [place] [phone] Ana Bear NP Routine medical exam (Primary Dx); Migraine without aura and without status migrainosus, not intractable; Rosacea; Anxiety; History of basal cell carcinoma; Need for hepatitis C screening test; Need for hepatitis B screening test 04/04/2024 Orders Only [facility] [address] [place] [address] [place] [phone] Gee Hopkins IV, MD 04/01/2024 11:57 AM PEST LOCATOR - 04/01/2024 11:59 PM PEST LOCATOR Hospital Encounter [facility] [address] [place] [address] Discharge Disposition: Discharge to home or self care 04/01/2024 11:30 AM PEST LOCATOR Office Visit [facility] [address] [facility] [address] [address] Gee Hopkins IV, MD Menopausal symptoms (Primary Dx); Fibroids, subserous; Well woman exam with routine gynecological exam from Last 3 Months Immunizations Name Administration Dates Next Due Influenza, Quadrivalent, Graciela l Culture-based MDCK, Preservative Free, Antibiotic Free, Intramuscular 03/14/2023,02/18/2022 Influenza, Quadrivalent, Spl it, Preservative Free, Intramuscular 01/29/2021,01/20/2020,05/21/2018 Influenza, Split 04/30/2013 Influenza, Trivalent, Preser vative Free, Intramuscular 02/13/2024,04/05/2017,04/24/2016 Influenza, Unspecified 02/06/2023 Pfizer SARS-CoV-2 Monovalent Vaccination (12+ Yrs) PURPLE 01/28/2021,06/13/2020,05/16/2020 Tdap 07/01/2022 Surgical History Surgery Date Site/Laterality Comments BASAL CELL CARCINOMA EXCISION 04/10/2010 - 04/09/2011 BASAL CELL CARCINOMA EXCISION 04/10/2011 - 04/09/2012 REDUCTION MAMMOPLASTY 04/10/2012 - 04/09/2013 ENDOMETRIAL ABLATION W/ NOVASURE 04/10/2016 - 04/09/2017 BREAST SURGERY 04/10/2010 - 04/09/2011 BASAL CELL CARCINOMA EXCISION 07/09/2021 - 08/07/2021 Medical History Medical History Date Comments Anxiety Basal cell carcinoma Migraines Rosacea Family History Medical History Relation Name Comments Hypertension Father Dante Anthony Cancer Maternal Grandmother Evelia Flores Pancreatic cancer Maternal Grandmother Evelia Flores No Known Problems Mother Heart disease Paternal Grandfather Breast cancer Neg Hx Colon cancer Neg Hx Diabetes Neg Hx Relation Name Status Comments Father Dante Neu[place] Alive Maternal Grandfather Maternal Grandmother Evelia Flores Mother Alive Paternal Grandfather Paternal Grandmother Social [...] 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 Not on file Not on pavan e Obstetrics History Para Term AB IAB SAB Ectopic Multiple Livin g Live Births 3 2 2 1 1 2 2 Date Outcome GA Total Labor Labor/2nd/3rd Weight Sex Type Anes PTL Val A1 A5 Name Clin 2003 SAB 5w0 d 2004 Term 39w 5d 3.799 kg (8 lb 6 oz) M Vag-S pont Epidura l Livin g Sabino 2008 Term 39w 5d 3.912 kg (8 lb 10 oz) M Vag-S pont Epidura l Livin g Arun Last Filed Vital Signs Vital Sign Reading Time Taken Comments Blood Pressure 118/76 05/17/2024 2:23 PM PEST LOCATOR Pulse 72 05/17/2024 2:23 PM PEST LOCATOR Temperature 36.7 C (98.1 F) 05/17/2024 2:23 PM PEST LOCATOR Respiratory Rate 20 05/17/2024 2:23 PM PEST LOCATOR Oxygen Saturation 99% 05/17/2024 2:23 PM PEST LOCATOR Inhaled Oxygen Concentration - - Weight 59.9 kg (132 lb) 05/17/2024 2:23 PM PEST LOCATOR Height 172.7 cm (5' 8 ) 05/17/2024 2:23 PM PEST LOCATOR Body Mass Index 20.07 05/17/2024 2:23 PM PEST LOCATOR Plan of Treatment Health Maintenance Due Date Last Done Comments Breast Cancer Screening-Mammogram 01/25/2024 01/24/2023, 01/24/2023 Covid-19 Vaccine () 05/03/2025 01/28/2021, 06/13/2020, 05/16/2020 Postponed from 12/10/2023 (Patient declined, but will receive in the future) Depression Screening 05/03/2025 05/03/2024, 07/01/2022, 09/28/2020 Regular Well Visit/Exam 18-64 05/03/2025 05/03/2024, 04/01/2024, 03/10/2023, Additional history exists Cervical Cancer Screening 02/24/2027 02/24/2022 Colon Cancer Screening-Colonoscopy 10/16/2031 10/15/2021 DTaP/Tdap/Td Vaccine (2 - Td or Tdap) 07/01/2032 07/01/2022 Influenza Vaccine Completed 02/13/2024, , 02/06/2023, Additional history exists Hepatitis B Screening Completed 05/03/2024 Hepatitis C Screening Completed 05/03/2024 Pneumococcal vaccine <65 Aged Out No longer eligible based on patient's age to complete this topic Procedures Procedure Name Priority Date/Time Associated Diagnosis Comments POCT RAPID STREP Routine 05/17/2024 2:41 PM PEST LOCATOR Sore throat EGFR Routine 05/03/2024 1:47 PM PEST LOCATOR Routine medical exam DIFFERENTIAL AUTO Routine 05/03/2024 1:4 7 PM PEST LOCATOR Routine medical exam CBC WITH AUTO DIFFERENTIAL Routine 05/03/2024 1:47 PM PEST LOCATOR Routine medical exam COMPREHENSIVE METABOLIC PANEL Routine 05/03/2024 1:47 PM PEST LOCATOR Routine medical exam LIPID PANEL Routine 05/03/2024 1:47 PM PEST LOCATOR Routine medical exam THYROID FUNCTION CASCADE Routine 05/03/2024 1:47 PM PEST LOCATOR Routine medical exam Anxiety HEPATITIS C ANTIBODY Routine 05/03/2024 1:47 PM PEST LOCATOR Need for hepatitis C screening test HEPATITIS B SURFACE ANTIGEN Routine 05/03/2024 1:47 PM PEST LOCATOR Routine medical exam Need for hepatitis B screening test HEPATITIS B CORE ANTIBODY, TOTAL Routine 05/03/2024 1:47 PM PEST LOCATOR Routine medical exam Need for hepatitis B screening test HEPATITIS B SURFACE ANTIBODY (IMMUNE STATUS) Routine 05/03/2024 1:47 PM PEST LOCATOR Routine medical exam Need for hepatitis B screening test URINALYSIS AND REFLEX TO MICROSCOPIC AND CULTURE Routine 05/03/2024 1:47 PM PEST LOCATOR Routine medical exam FOLLICLE STIMULATING HORMONE Routine 04/01/2024 3:23 PM PEST LOCATOR Menopausal symptoms HM MAMMOGRAPHY Routine 01/24/2023 PAP AND HIGH RISK HPV, REFLEX TO GENOTYPING Routine 02/24/2022 4:43 PM PEST LOCATOR Well woman exam with routine gynecological exam Screening for HPV (human papillomavirus) Screening for malignant neoplasm of cervix COLONOSCOPY 10/15/2021 8:06 AM CDT from Last 3 Months or Most Recently Relevant to Health Maintenance Results * POCT rapid strep A (05/17/2024 2:41 PM PEST LOCATOR) Rapid Strep A, POC Negative Negative Swab 05/17/2024 2:41 PM PEST LOCATOR us Jennifer Simmons LOCK TENDER CHIEF OPERATOR POINT OF CARE TEST ORDERAB LES Final Result * eGFR (05/03/2024 1:47 PM PEST LOCATOR) eGFR >90 >=60 mL/min/1. 73 m2 Comment: [...] of Race in Diagnosing Kidney Disease, JASN 2020). The CKD-EPI equation should not be used for patients with unstable renal function and has not been validated in children and those over 70. Current interpretive data was last reviewed 2021. Blood 05/03/2024 1:47 PM PEST LOCATOR 05/03/2024 7:09 PM PEST LOCATOR us Ana Bear LOCK TENDER CHIEF OPERATOR LAB BLOOD ORDERABLES Final Res ult [facility] [address] Department [place] [address] * Differential, auto (05/03/2024 1:47 PM PEST LOCATOR) Pathologist [facility] Neutrophil abs 1.8 1.5 - 6.5 K/cumm Imm gran abs 0.0 0.0 - 0.1 K/cumm [facility] Lymphocyte abs 1.6 0.8 - 3.3 K/cumm [facility] Monocyte abs 0.3 0.2 - 0.8 K/cumm [facility] Eosinophil abs 0.0 0.0 - 0.5 K/cumm [facility] Basophil abs 0.0 0.0 - 0.1 K/cumm [facility] Neutrophil pct 47.3 % [facility] Comment: Interpretive Data Percent cell count reference ranges are not reported, since discordance with absolute values may lead to misinterpretation of CBC data. Current Interpretive Data was last revised on 2017. Imm gran pct 0.3 % [facility] Comment: Interpretive Data Percent cell count reference ranges are not reported, since discordance with absolute values may lead to misinterpretation of CBC data. Current Interpretive Data was last revised on 2017. Lymphocyte pct 42.6 % [facility] Comment: Interpretive Data Percent cell count reference ranges are not reported, since discordance with absolute values may lead to misinterpretation of CBC data. Current Interpretive Data was last revised on 2017. Monocyte pct 8.3 % [facility] Comment: Interpretive Data Percent cell count reference ranges are not reported, since discordance with absolute values may lead to misinterpretation of CBC data. Current Interpretive Data was last revised on 2017. Eosinophil pct 1.0 % [facility] Comment: Interpretive Data Percent cell count reference ranges are not reported, since discordance with absolute values may lead to misinterpretation of CBC data. Current Interpretive Data was last revised on 2017. Basophil pct 0.5 % [facility] Comment: Interpretive Data Percent cell count reference ranges are not reported, since discordance with absolute values may lead to misinterpretation of CBC data. Current Interpretive Data was last revised on 2017. Blood 05/03/2024 1:47 PM PEST LOCATOR 05/03/2024 6:42 PM PEST LOCATOR us nAa Bear LOCK TENDER CHIEF OPERATOR LAB BLOOD ORDERABLES Final Res ult [facility] [address] Department [place] [address] * Thyroid Function Todd (05/03/2024 1:47 PM PEST LOCATOR) TSH 1.95 0.30 - 4.20 mcIUnit/mL Blood 05/03/2024 1:47 PM PEST LOCATOR 05/03/2024 7:09 PM PEST LOCATOR Ana Bear NP LAB BLOOD ORDERABLES Final Res ult Performing Organization Address City/[facility]/ZIP Co de Phone Number [facility] [address] Department of Laboratories [place], [place] [id number] * (ABNORMAL) Urinalysis reflex to microscopic and culture Urine, clean voided (05/03/2024 1:47 PM PEST LOCATOR) Color, ur Yellow Yellow Clarity, ur Clear Clear [facility] Specific gravity, ur 1.012 1.003 - 1.030 [facility] pH, urine 6.0 [facility] Comment: Interpretive Data U rine pH is affected by diet, medications, systemic acid-base disturbances, and renal tubular function. pH may affect urinary stone formation. For example, urine pH below 6.0 may help reduce the tendency for calcium phosphate stones and pH greater than 6.0 may reduce the tendency for uric acid stone formation. Source: [facility] Current Interpretive Data was last revised on 2017 Protein, ur ql Negative Negative [facility] Glucose, ur ql Negative Negative [facility] Ketones, ur 1+(A) Negative [facility] Bilirubin, ur Negative Negative [facility] Blood, ur Negative Negative [facility] Urobilinogen, ur <2.0 <2.0 mg/dL [facility] Nitrite, ur Negative Negative [facility] Leukocyte esterase, ur Negative Negative [facility] UA reflex comment Reflex conditions for microscopic UA and culture not met. [facility] Urine, clean voided 05/03/2024 1:47 PM PEST LOCATOR 05/03/2024 1:48 PM PEST LOCATOR Ana Bear NP LAB MICROBIOLOGY - GENERAL ORD ERABLES Final Result Performing Organization Address [facility]/ZIP Co de Phone Number [facility] [address] Department of Laboratories [place], [place] [id number] * (ABNORMAL) CBC with auto differential (05/03/2024 1:47 PM PEST LOCATOR) [facility] WBC 3.9 3.8 - 9.9 K/cumm Hgb 13.7 11.9 - 15.5 g/dL [facility] Hct 42.4 35.6 - 45.5 % [facility] Plt 246 150 - 400 K/cumm [facility] MPV 9.2 9.1 - 12.3 fL [facility] RBC 4.34 3.90 - 5.20 M/cumm [facility] MCV 97.7(H) 81.3 - 96.4 fL [facility] MCH 31.6 27.1 - 33.3 pg [facility] MCHC 32.3 32.3 - 35.7 g/dL [facility] RDW CV 12.2 11.1 - 14.9 % [facility] RDW SD 44.1 35.7 - 48.1 fL [facility] NRBC abs 0.00 0.00 - 0.01 K/cumm [facility] Blood 05/03/2024 1:47 PM PEST LOCATOR 05/03/2024 6:42 PM PEST LOCATOR us Ana Bear LOCK TENDER CHIEF OPERATOR LAB BLOOD ORDERABLES Final Res ult [facility] [address] Department [place] [address] * Hepatitis C antibody Blood (05/03/2024 1:47 PM PEST LOCATOR) [facility] Hep C Ab Nonreactive Nonreactive Comment: Interpretive [...] revised on 2019. Blood 05/03/2024 1:47 PM PEST LOCATOR 05/03/2024 7:09 PM PEST LOCATOR us Ana Bear NP LAB MICROBIOLOGY - GENERAL ORD ERABLES Final Result [facility] [address] [facility] [place] [address] * Hepatitis B core antibody, total Blood (05/03/2024 1:47 PM PEST LOCATOR) Hep B core IgG/IgM Nonreactive Nonreactive Comment:Testing performed by : [facility], [address] [place]., [address] Blood 05/03/2024 1:47 PM PEST LOCATOR 05/03/2024 9:47 PM PEST LOCATOR Ana Bear NP LAB MICROBIOLOGY - GENERAL ORD ERABLES Final Result Performing Organization Address [facility] Co de Phone Number [facility] [address] [facility] [place] [address] * Hepatitis B surface antibody (immune status) Blood (05/03/2024 1:47 PM PEST LOCATOR) HBsAb (immune status) Nonreactive Comment: This result is consistent with a lack of immunity to Hepatitis B Virus when used in the setting of routine screening. Current interpretative data was last revised on 21 Testing performed by: [facility], [address] [place] [address]., [id number] Blood 05/03/2024 1:47 PM PEST LOCATOR 05/03/2024 9:47 PM PEST LOCATOR Result [facility] Ana Bear NP LAB MICROBIOLOGY - GENERAL ORD ERABLES Final Result [facility] [address] [facility] [place] [address] * Hepatitis B Surface Antigen Blood (05/03/2024 1:47 PM PEST LOCATOR) HepBsAg Nonreactive Nonreactive Blood 05/03/2024 1:47 PM PEST LOCATOR 05/03/2024 7:09 PM PEST LOCATOR us Ana Bear NP LAB MICROBIOLOGY - GENERAL ORD ERABLES Final Result [facility] [address] Department [place] [address] * (ABNORMAL) Lipid panel (05/03/2024 1:47 PM PEST LOCATOR) Cholesterol 204(H) 30 - 199 mg/dL Comment: [...] revised on 2017. Triglycerides 59 <=149 mg/dL [facility] Comment: Interpretive Data Ages < or = [...] revised on 2017. HDL 70 >=40 mg/dL [facility] Comment: Interpretive Data Ages < or = [...] on 2017. LDL, calculated 123 <=129 mg/dL [facility] Comment: Interpretive Data Ages < or = [...] revised on 2023. Non-HDL Cholesterol 134 mg/dL [facility] Comment: Interpretive Data Ages < or = [...] last revised on 2017. Chol/HDL ratio 3 [facility] Blood 05/03/2024 1:47 PM PEST LOCATOR 05/03/2024 7:09 PM PEST LOCATOR us Ana Bear LOCK TENDER CHIEF OPERATOR LAB BLOOD ORDERABLES Final Res ult [facility] [address] Department [place] [address] * Comprehensive metabolic panel (05/03/2024 1:47 PM PEST LOCATOR) Sodium 142 135 - 145 mmol/L Potassium, pl 4.0 3.3 - 4.9 mmol/L [facility] Chloride 104 97 - 110 mmol/L [facility] CO2 26 22 - 32 mmol/L [facility] Anion gap 12 2 - 15 mmol/L [facility] BUN 13 6 - 25 mg/dL [facility] Creatinine 0.65 0.60 - 1.10 mg/dL [facility] Glucose 78 70 - 199 mg/dL [facility] Comment: Interpretive Data Fasting glucose >/= 126 [...] classification and Diagnosis of Diabetes Diabetes Care 2021; 46: S19-S40. Current interpretive data was last revised 2022. Calcium 9.4 8.5 - 10.3 mg/dL [facility] Bilirubin, total 0.4 0.1 - 1.2 mg/dL [facility] Protein, pl 7.1 6.5 - 8.5 g/dL [facility] Albumin 4.6 3.5 - 5.0 g/dL [facility] Alk phos 66 40 - 130 Units/L [facility] ALT 17 7 - 45 Units/L [facility] AST 23 10 - 45 Units/L [facility] Blood 05/03/2024 1:47 PM PEST LOCATOR 05/03/2024 7:09 PM PEST LOCATOR us Ana Bear LOCK TENDER CHIEF OPERATOR LAB BLOOD ORDERABLES Final Res ult [facility] [address] Department [place] [address] * Follicle stimulating hormone (04/01/2024 3:23 PM PEST LOCATOR) FSH 115.00 mIUnits/mL Comment: Interpretive Data Males: 1.5 - 12.4 mIUnits/mL Females: Follicular Phase: 3.5 - 12.5 mIUnits/mL Ovulatory Phase: 4.7 - 21.5 mIUnits/mL Luteal Phase: 1.7 - 7.7 mIUnits/mL Post-menopausal: 25.8 - 134 mIUnits/mL Current Interpretive Data was last revised on 2016. Blood 04/01/2024 3:23 PM PEST LOCATOR 04/01/2024 3:23 PM PEST LOCATOR Gee Hopkins IV, MD LAB BLOOD ORDERABLES F inal Result [facility] [address] Department [place] [address] * MAMMOGRAPHY (01/24/2023) Mammography Normal Historical Provider HEALTH MAINTENANCE Final Result * Pap and High Risk HPV, reflex to Genotyping (02/24/2022 4:43 PM PEST LOCATOR) Thin prep (Pap test) 02/24/2022 4:43 PM PEST LOCATOR 02/28/2022 2:31 PM PEST LOCATOR Narrative [facility] - 03/04/2022 9:01 AM PEST LOCATOR EPIC results best viewed via link to PDF [id number] [facility], [place], [place] [address] Tele: Mariela Hair MD - Contracting Engineer CYTOLOGY REPORT Note to Patients: This report [...] the details. Patient Name: TAIWO SHORE Address: [address] , [place] [address] Gender: F : 1975 (Age: 46) Service: Location: Hospital #: [id number] Patient Type: [employer] SPECIMEN Taken: 02/24/2022 Reported: 03/04/2022 Physician(s): Juan [...] LAB CYTOLOGY ORDERABLE S Final Result [facility] Laboratory Receiving [address] [place] [address] * COLONOSCOPY (10/15/2021 8:06 AM CDT) Anatomical Region Laterality Modality Other Narrative Procedure Note Anand Walker MD - 10/15/2021 8:06 AM CDT ENDOSCOPY LAB Patient Name: Taiwo Shore Procedure Date: 10/15/2021 8:06 AM Admit Type: Outpatient Room: [facility] Date of : 1975 Instrument Name: [id number] Gender: Female Note Status: Finalized Procedure: Colonoscopy [...] Most Recently Relevant to Health Maintenance Insurance [facility] CHOICE PLUS [facility] HMO/PPO Address: [address] [place] [address] [facility] HMO/PPO Address: [address] [place] [address] [facility] HMO/PPO Address: [address] [address] [place] [address] Advance Directives For more information, please contact: [phone] * Full Code (Latest Code Status on File) Date Activated Date Inactivated Comments 10/15/2021 7:37 AM 10/15/2021 1:27 PM Care Teams Educational Program Assistant Relationship Specialty Start Date End Date Deepa Lott MD [address] [facility] [address] [place] [address] PCP - General Internal Medicine 04/25/23
--- OUTSIDE RECORDS SUMMARY | 2024-05-20 14:54 | XMS_ITS | Patient Health Record ---
Author Organization [facility] Address [address] [facility] [address] [place] [address] Care Team Providers Care Sponge Clipper Name Role Phone Rodo HEMPHILL, Marquez Primary Care Provider Rene GALLOWAY MD, FAREED Unavailable REASON FOR REFERRAL No Information PLAN OF TREATMENT Pending Test Test Name Order Date Colonoscopy 10/04/2021 Insurance Providers Payer Name Payer Address Payer Phone Subscriber Number Group Number Insured Name Patient Relationship to Insured Coverage Start Date Coverage End Date [facility] [employer] [address] [address] [place] [address] [id number] Angie Aleman Self - patient is the insured
--- OUTSIDE RECORDS SUMMARY | 2024-05-20 14:54 | XMS_ITS | Referral Summary ---
Author Organization [facility] Address [address] [place] [address] Care Team Providers Care Hedge Fund Manager Name Role Phone Marquez Koehler MD Primary Care Provider [phone] Source Comments [facility],non-owned Affiliates and Associated Physician Practices is amultiple site organization consisting of ambulatory clinics and hospital sitesin [place], [place], [place] and [place]. This disclosure is being madepursuant to the Care Everywhere program and may not contain all information available regarding this patient. Last updated 17.[facility] Allergies Active Allergy Reactions Criticality Noted [...] Orientation Not on file Plan of Treatment Not on file Care Teams Hedge Fund Manager Relationship Specialty Start Date End Date Marquez Koehler MD [address] [address] [place] [id number] PCP - General 06/01/21
== END 2024-05-20 14:36 | disposition home or self-care (01) ==
LOC: ANHIMG 14:38
DX: Z12.31 Encounter for screening mammogram for malignant neoplasm of breast (principal)
CPT/HCPCS: 77063; 77067